=== PATIENT | male | born 1970 | race Caucasian/White ===

== ENCOUNTER 2019-08-17 00:08 | Observation (INO) | payer SELFPAY ==
[2019-08-17] VITALS (16 sets, daily range): BP systolic 139–187; BP diastolic 85–122; PULSE 79–105; RESP 14–20; TEMP 36.7–37.3; O2SAT 94–97; BMI 31.5
--- NOTE | 2019-08-17 00:15 | ECG_ITS ---
Measurements Intervals [place] Rate: 87 P: 45 UT: 157 QRS: 16 QRSD: 94 T: 37 QT: 328 QTc: 396 SINUS RHYTHM No previous ECG available for comparison Electronically Signed On 08-17-2019 20:22:41 MISSION ANALYST by Brett Lora M.D. [email or web address]
--- NOTE | 2019-08-17 00:15 | XRR_ITS ---
PROCEDURE INFORMATION: Exam: XR Chest, 1 View Exam date and time: 08/17/2019 12:58 AM Age: 48 years old Clinical indication: Patient HX: Cough for a few weeks TECHNIQUE: Imaging protocol: XR of the chest Views: 1 view. COMPARISON: No relevant prior studies available. FINDINGS: Lungs: Emphysematous change and interstitial prominence. No acute infiltrate. Pleural space: No pleural effusion. Heart/Mediastinum: Normal configuration of the heart. Bones/joints: Unremarkable. XR/XR chest 1V portable [id number] IMPRESSION: Emphysematous change and interstitial prominence.
--- NOTE | 2019-08-17 00:24 | ED_ITS ---
Entered by Kathrine Matute, acting as scribe for Jennifer Arora Gerald Aug 17, 2019 00:08 HPI - Chest Pain General: Chief Complaint: Chest Pain Stated Complaint: ACHE BOTH ARMS, CHEST PAIN Time Seen by Provider: 08/17/19 00:15 History of Present Illness: HPI narrative: 48 y/o male presents to the ED with complaint of chest/epigastric pain. Pt states he has pain that radiates down both arms. He has some relief after belching. MD complaint: chest pain Onset (ago): hour(s) Pain location: epigastric Pain radiation: right arm and left arm Quality: dull Associated symptoms: Deny diaphoresis, dyspnea, fever(s), nausea, palpitations, syncope or vomiting Review of Systems Const: Denies: fever, chills, body aches, fatigue, malaise or diaphoresis Eyes: Denies: change in vision or blurry vision ENMT: Denies: throat pain, painful swallowing, hoarseness, ear pain, ear discharge, Change in hearing or nasal discharge Card: Reports: other; Denies: palpitations or syncope Resp: Denies: shortness of breath, productive cough, non-productive cough, wheezing, coughing up blood or chest congestion GI: Denies: nausea, vomiting, vomiting blood, coffee grounds in vomit, diarrhea, constipation, cramping, blood in stool or black tarry stool : Denies: flank pain, difficulty urinating, painful urination, urinary frequency, urinary urgency, decreased urine ouput, urinary incontinence or blood in urine Musc: Denies: neck pain, back pain, extremity pain, extremity swelling, joint pain, joint swelling, joint warmth or joint stiffness Skin/Breast: Denies: rash, skin tenderness or yellow skin Neuro: Denies: headache, numbness in extremities, weakness in extremities, changes in sensation, lack of coordination, difficulty walking, dizziness, vertigo or confusion Endo: Denies: excessive thirst, tired all the time, cold intolerance, excessive sweating, flushing or hot flashes Ammon/Lymph: Denies: easy bruising, easy bleeding, petechiae or enlarged lymph nodes All/Imm: Denies: hives, throat swelling, tongue swelling, facial swelling or acute wheezing PFSH ED PFSH: Statuses (acute, chronic, etc) shown below reflect problem list status as previously entered and may not be historically accurate Social History Smoking and tobacco status: never smoked Physical Exam Const: COMMON NORMALS: no apparent distress, oriented x3, no limitations, healthy appearing and well nourished EXAM LIMITATIONS: no altered mental status GENERAL APPEARANCE: cooperative, well kempt and well developed ORIENTATION/CONSCIOUSNESS: Yes awake HENMT: COMMON NORMALS: normocephalic, head/scalp atraumatic, hearing grossly normal bilaterally, external ears normal, EAC's normal, external nose normal and moist oral mucous membranes HEAD & SCALP: normal to inspection, normocephalic and atraumatic FACE & SINUS: normal facial exam and face symmetric NOSE: external nose normal and nares normal EXTERNAL EAR: Yes external ears normal EXTERNAL AUDITORY CANAL: EAC's normal MOUTH: oral and palatal mucosa normal and tongue normal Eye: COMMON NORMALS: PERRL, EOMs intact bilaterally, conjunctivae normal and no scleral icterus GENERAL EYE: normal appearance of both eyes and normal light reflex CONJUNCTIVA: Yes conjunctivae normal SCLERA: sclerae normal CORNEA: Yes corneas normal PUPIL: Yes PERRL DIRECT OPHTHALMOSCOPY: Yes normal light reflex Neck/C-Spine: COMMON NORMALS: full ROM, no lymphadenopathy, supple, no meningeal signs and no JVD GENERAL: Yes normal visual inspection and Yes trachea midline CERVICAL SPINE: Yes cervical ROM normal Resp: COMMON NORMALS: normal respiratory effort, no retractions, no use of accessory muscles and clear to auscultation bilaterally EFFORT & INSPECTION: Yes able to speak in complete sentences AUSCULTATION: clear to auscultation bilaterally Cardio: COMMON NORMALS: no JVD, regular rate, regular rhythm, S1 normal heart sound, S2 normal heart sound, no gallops, no clicks, no murmurs and no rub JUGULAR VENOUS DISTENTION: no JVD RATE: regular rate RHYTHM: regular rhythm HEART SOUNDS: S1 normal and S2 normal : COMMON NORMALS: Yes no CVA tenderness BLADDER/KIDNEY EXAM: Yes no CVA tenderness Back/Pelvis: COMMON NORMALS: no CVA tenderness, thoracic and lumbar spine normal to inspection, no thoracic nor lumbar tenderness and thoraco-lumbar ROM normal Extremity: COMMON NORMALS: normal to inspection, full ROM, normal capillary refill, no joint enlargement, no clubbing, cyanosis or edema and no calf tenderness Neuro: COMMON NORMALS: oriented x3, CN's II-XII intact bilaterally, moves all extremities, no focal motor deficits and no sensory deficits noted MENINGEAL SIGNS: Yes no meningeal signs Psych: COMMON NORMALS: mental status grossly normal, thought process normal, cooperative, affect normal, speech normal and activity/motor behavior normal APPEARANCE: Yes well kempt SPEECH: Yes normal speech THOUGHT PROCESS: normal thought process Skin: COMMON NORMALS: no rashes or lesions noted, skin turgor normal, no jaundice, no petechiae and no mottling GENERAL SKIN EXAM: no rashes or lesions noted and turgor normal Course Vital Signs: Vital signs: Vital Signs Temperature 98.4 F 08/17/19 00:19 Pulse Rate 83 08/17/19 03:41 Respiratory Rate 16 08/17/19 03:41 Blood Pressure 148/85 08/17/19 03:41 Pulse Oximetry 96 08/17/19 03:41 MDM - Chest Pain MDM Narrative: Medical decision making narrative: The patient has a heart score of 4. The concern of acute coronary syndrome is present. It is possible this is a epigastric type lesion. I will go ahead and admit the patient for cardiac rule out. The case was endorsed to Dr. Olivier and he will come and evaluate the patient for admission. Lab Data: Attestation: I reviewed the patient's lab results. Labs: Lab Results 08/17/19 08/17/19 08/17/19 Range/Units 00:26 00:26 00:26 WBC 7.6 (4.0-10.0) 10^3/ uL RBC 5.37 H (4.1-5.3) 10^6/u L Hgb 15.1 (11.7-16.6) g/dL Hct 45.8 (42.0-52.0) % MCV 85.3 (80-94) fL MCH 28.1 (28.0-34.0) pg MCHC 33.0 (30.0-36.0) g/dL RDW 12.6 (12.1-15.1) % Plt Count 278 (130-400) 10^3/c mm MPV 10.2 (7.4-10.4) fL Neut % (Auto) 59.0 % Lymph % (Auto) 28.9 % Jay % (Auto) 10.2 % Eos % (Auto) 1.2 % Baso % (Auto) 0.4 % Neut # (Auto) 4.5 (1.8-7.7) 10^3/u L Lymph # (Auto) 2.2 (0.8-4.8) 10^3/u L Jay # (Auto) 0.8 (0.2-0.9) 10^3/u L Eos # (Auto) 0.1 (0.0-0.8) 10^3/u L Baso # (Auto) 0.0 (0.0-0.1) 10^3/u L Nucleated RBC % (a uto) 0 % Nucleated RBCs # 0.0 /100WBC PT 12.40 (10.5-13.3) SECO NDS INR 0.90 (0.8-1.2) APTT 27.5 (23.9-36.7) SECO NDS Sodium 137 (136-145) mmol/L Potassium 4.2 (3.5-5.1) mmol/L Chloride 99 (98-107) mmol/L Carbon Dioxide 27 (22-29) mmol/L Anion Gap 15.2 (5-19) BUN 18 (6-20) mg/dL Creatinine 1.1 (0.7-1.2) mg/dL GFR Calculation 71.4 L (90-130) mL/min Glucose 111 H (74-109) mg/dL Calcium 10.7 H (8.6-10.0) mg/Dl Magnesium 2.3 (1.7-2.3) mg/dL Total Bilirubin 0.4 (0.15-1.2) mg/dL AST 22 (0-40) U/L ALT 39 (0-41) U/L Alkaline Phosphata se 47 (40-130) IU/L Troponin T Baselin e (0-15) ng/mL Troponin T 120 Min capitan grande band (0-15) ng/mL Delta Troponin T (0-10) ABS# NT-Pro-B Natriuret Pep 35 (0-125) pg/mL Total Protein 7.5 (6.6-8.7) g/dL Albumin 4.5 (3.5-5.2) g/dL Globulin 3.0 (1.3-4.6) g/dL Lipase 36 (13-60) U/L Urine Color (Yellow) Urine Appearance (CLEAR) Urine pH (5-7) Ur Specific Gravit y (1.005-1.030) Urine Protein (Negative) Urine Glucose (UA) (Normal) Urine Ketones (Negative) Urine Occult Blood (Negative) Urine Nitrate (Negative) Urine Bilirubin (NEGATIVE) Urine Urobilinogen (Negative) mg/dL Ur Leukocyte Paulette ase (Negative) Urine RBC (0-2) /hpf Urine WBC (0-5) /hpf Ur Squamous Epith Cells (0-5) Urine Bacteria (NONE) 08/17/19 08/17/19 08/17/19 Range/Units 00:26 01:30 02:06 WBC (4.0-10.0) 10^3/ uL RBC (4.1-5.3) 10^6/u L Hgb (11.7-16.6) g/dL Hct (42.0-52.0) % MCV (80-94) fL MCH (28.0-34.0) pg MCHC (30.0-36.0) g/dL RDW (12.1-15.1) % Plt Count (130-400) 10^3/c mm MPV (7.4-10.4) fL Neut % (Auto) % Lymph % (Auto) % Jay % (Auto) % Eos % (Auto) % Baso % (Auto) % Neut # (Auto) (1.8-7.7) 10^3/u L Lymph # (Auto) (0.8-4.8) 10^3/u L Jay # (Auto) (0.2-0.9) 10^3/u L Eos # (Auto) (0.0-0.8) 10^3/u L Baso # (Auto) (0.0-0.1) 10^3/u L Nucleated RBC % (a uto) % Nucleated RBCs # /100WBC PT (10.5-13.3) SECO NDS INR (0.8-1.2) APTT (23.9-36.7) SECO NDS Sodium (136-145) mmol/L Potassium (3.5-5.1) mmol/L Chloride (98-107) mmol/L Carbon Dioxide (22-29) mmol/L Anion Gap (5-19) BUN (6-20) mg/dL Creatinine (0.7-1.2) mg/dL GFR Calculation (90-130) mL/min Glucose (74-109) mg/dL Calcium (8.6-10.0) mg/Dl Magnesium (1.7-2.3) mg/dL Total Bilirubin (0.15-1.2) mg/dL AST (0-40) U/L ALT (0-41) U/L Alkaline Phosphata se (40-130) IU/L Troponin T Baselin e 8 (0-15) ng/mL Troponin T 120 Min [place] band 6.84 (0-15) ng/mL Delta Troponin T -1.16 L (0-10) ABS# NT-Pro-B Natriuret Pep (0-125) pg/mL Total Protein (6.6-8.7) g/dL Albumin (3.5-5.2) g/dL Globulin (1.3-4.6) g/dL Lipase (13-60) U/L Urine Color Yellow (Yellow) Urine Appearance Clear (CLEAR) Urine pH 5 (5-7) Ur Specific Gravit y 1.010 (1.005-1.030) Urine Protein Neg (Negative) Urine Glucose (UA) Norm (Normal) Urine Ketones Negative (Negative) Urine Occult Blood Trace H (Negative) Urine Nitrate Negative (Negative) Urine Bilirubin Neg (NEGATIVE) Urine Urobilinogen Norm (Negative) mg/dL Ur Leukocyte Paulette ase Negative (Negative) Urine RBC 0-4 H (0-2) /hpf Urine WBC None (0-5) /hpf Ur Squamous Epith Cells None (0-5) Urine Bacteria None (NONE) Imaging Data^: CXR: My impression: No acute cardiopulmonary findings. EKG Data^: EKG 1: Attestation: I personally reviewed and interpreted this EKG as follows: Interpretation: EKG read and reported at 0024 -normal sinus rhythm at 87 beats a minute, normal NM intervals, normal axis, no acute ST or T wave changes. EKG 2: Interpretation: EKG at 0227 -normal sinus rhythm at 77 beats a minute, no acute ST-T wave changes, no acute findings. Unchanged from previous. Discharge Plan Discharge Admit Provider: Janell Olivier Coding Level of Care Code ED Waiter/Waitress Buffet for g Fwd Exam Problem Focused The documentation recorded by the scribeGiovani Ashley, accurately reflects the service I personally performed and the decisions made by me, Jennifer Arora Aug 17, 2019 00:08
[2019-08-17 00:39] LABS: Basophils % 0.4 %; Eosinophils # 0.1 10^3/uL (0.0-0.8); Eosinophils % 1.2 %; Hematocrit 45.8 % (42.0-52.0); Hemoglobin 15.1 g/dL (11.7-16.6); Lymphocytes # 2.2 10^3/uL (0.8-4.8); Lymphocytes % 28.9 %; Mean Corpuscular Hemoglobin 28.1 pg (28.0-34.0); Mean Corpuscular Volume 85.3 fL (80-94); Mean Platelet Volume 10.2 fL (7.4-10.4); Monocytes # 0.8 10^3/uL (0.2-0.9); Monocytes % 10.2 %; Neutrophils # 4.5 10^3/uL (1.8-7.7); Nucleated Red Blood Cells % 0 %; Platelet Count 278 10^3/cmm (130-400); Red Blood Count 5.37 10^6/uL (4.1-5.3); Red Cell Distribution Width 12.6 % (12.1-15.1); White Blood Count 7.6 10^3/uL (4.0-10.0)
[2019-08-17] MEDS: nitroglycerin 0.4 mg sublingual Tablet SUBLINGUAL ×3 (00:41→01:01)
[2019-08-17] MEDS: aspirin 81 mg Chew Tablet 324 MG PO (00:41)
[2019-08-17] MEDS: sodium chloride 0.9% 1,000 ML 100 ML IV ×2 (00:41→05:27)
[2019-08-17 00:42] LABS: Partial Thromboplastin Time 27.5 SECONDS (23.9-36.7)
[2019-08-17 00:54] LABS: Troponin(5th) Baseline 8 ng/mL (0-15)
[2019-08-17 01:04] LABS: Alanine Aminotransferase 39 U/L (0-41); Albumin Level 4.5 g/dL (3.5-5.2); Alkaline Phosphatase 47 IU/L (40-130); Anion Gap 15.2 (5-19); Aspartate Amino Transferase 22 U/L (0-40); Blood Urea Nitrogen 18 mg/dL (6-20); Calcium 10.7 mg/Dl (8.6-10.0); Carbon Dioxide 27 mmol/L (22-29); Chloride 99 mmol/L (98-107); Glomerular Filtration Rate 71.4 mL/min (90-130); Glucose 111 mg/dL (74-109); Lipase 36 U/L (13-60); Magnesium 2.3 mg/dL (1.7-2.3); NT Pro B Type Natriuretic Pept 35 pg/mL (0-125); Potassium 4.2 mmol/L (3.5-5.1); Sodium 137 mmol/L (136-145); Total Bilirubin 0.4 mg/dL (0.15-1.2); Total Protein 7.5 g/dL (6.6-8.7)
--- NOTE | 2019-08-17 01:11 | US_ITS ---
WS: [id number] Complete ABDOMINAL ULTRASOUND HISTORY: Abdominal Pain COMPARISON: None available. Liver: 15.6 cm in length. Normal size liver with increased echogenicity and attenuation from hepatic steatosis. The entire liver is not well visualized due to attenuation. No mass or bile duct dilatatio n. Gallbladder: Normally distended with no gallstones, wall thickening or pericholecystic fluid. Gallbladder wall thickness: 0.2 mm. Pancreas: Tail is poorly visualized. Head and neck are normal. CBD: 3.5 mm. Right kidney: 10.7 cm x 6.1 cm x 5.4 cm. No mass, cortical thickening or hydronephrosis. Left kidney: 12.4 cm x 4.9 cm x 6.6 cm. No mass, cortical thickening or hydronephrosis. Spleen: Normal size and echogenicity. Abdominal aorta and IVC are within normal limits. No ascites. US/US abdomen complete* [id number] IMPRESSION: 1. Normal complete abdomen ultrasound. Moderate hepatic steatosis. No mass or dilatation of the bile ducts. 2. Normal gallbladder. 3. Normal kidneys.
--- NOTE | 2019-08-17 02:02 | PC.NURSE ---
LAB IN ROOM
[2019-08-17 02:11] LABS: Bilirubin Urine Neg (NEGATIVE); Blood Urine Trace (Negative); Glucose Urine UA Norm (Normal); Ketones Urine Negative (Negative); Leukocyte Esterase Urine Negative (Negative); Nitrate Urine Negative (Negative); Protein Urine Neg (Negative); RBC Urine 0-4 /hpf (0-2); Urine Appearance Clear (CLEAR); Urine Color Yellow (Yellow); Urobilinogen Urine Norm (Negative); pH Urine 5 (5-7)
[2019-08-17] MEDS: nitroglycerin 1 gm/inch oint Pkt 1 INCH TOPICAL (02:27)
[2019-08-17 02:29] LABS: Troponin 5 2HR 6.84 ng/mL (0-15)
[2019-08-17 02:30] LABS: Troponin 5 2HR Delta -1.16 ABS# (0-10)
--- NOTE | 2019-08-17 03:30 | P.HP_ITS ---
Providers/Chief Complaint Admitting Physician: Janell Olivier MD Chief Complaint: CHEST PAIN History of Present Illness EDMUND CORDERO is a 48 year old male who carries diagnosis of hypertension, family history of Brugada syndrome came in with chief complaint of epigastric pain. Patient is stating that symptoms started 1 week ago which are getting worse after eating, he would get epigastric discomfort, epigastric discomfort would get relieved to some extent with burping, no relationship with food intake or hunger. Today his arm started getting numb and pain was radiating towards his both arms at this point he decided to come to ER for further evaluation. He did not experience any chest pain, nausea, vomiting, dysuria, diarrhea, constipation, flulike symptoms. His epigastric pain is non- positional, no relationship with exertion or rest. He is describing his pain as dull 3-4/10 intensity without any aggravating or relieving factors. Diagnostics in ER showed normal hemodynamics, normal EKG without significant r ise in troponin he was admitted because of heart score of 4 and family history of Brugada syndrome Review of Systems Const: Denies: fever or chills Eyes: Denies: change in vision ENMT: Denies: throat pain Card: Denies: chest pain, palpitations or syncope Resp: Denies: shortness of breath GI: Reports: abdominal pain, bloating and excessive passing of gas; Denies: nausea, vomiting or change in bowel habits : Denies: flank pain Musc: Denies: neck pain Skin/Breast: Denies: rash Neuro: Denies: headache Psych: Denies: anxiety Endo: Denies: excessive urination Ammon/Lymph: Denies: easy bruising All/Imm: Denies: hives Medications/Allergies Allergies Allergy/AdvReac Type Severity Reaction Status Date / Time No Known Allergies Allergy Verified 08/17/19 04:51 PFSH Acute PFSH: Statuses (acute, chronic, etc) shown below reflect problem list status as previously entered and may not be historically accurate Medical History (Updated 08/17/19 @ 05:05 by Janell Olivier MD) Hypertension (Acute) Surgical History (Updated 08/17/19 @ 05:06 by Janell Olivier MD) No pertinent past surgical history (Acute) Family History (Updated 08/17/19 @ 05:06 by Janell Olivier MD) Mother Hypertension Sister Hypertension Father Brugada syndrome Grandfather Brugada syndrome Social History (Updated 08/17/19 @ 05:06 by Janell Olivier MD) Smoking and tobacco status: never smoked Alcohol intake: never Substance/Drug Use: never Household members: spouse Marital status: Vitals/I&O/Wt Last Vital Signs Temp 98.4 F 08/17/19 00:19 Pulse 82 08/17/19 02:55 Resp 16 08/17/19 02:55 BP 144/93 08/17/19 02:55 Pulse Ox 95 08/17/19 02:55 Weight last 48 hrs Weight 99.79 kg Physical Exam Narrative: EXAM NARRATIVE: Patient lying comfortably in his bed, well-built male S1-S2 no active murmur no JVD or heart failure Abdomen soft nontender nondistended, bowel sounds present, mild epigastric tenderness positive on deep palpation no signs of peritonitis Neurologically nonfocal exam Lungs are clear to auscultation Skin without ischemia signs of gangrene or ulcer Extremities does not show any signs of edema\ Appropriate mood and affect EOMI PERRLA Data : 08/17/19 00:26 08/17/19 00:26 A&P Assessment and plan (1) Epigastric pain: Status: Acute Code(s): R10.13 - Epigastric pain Additional A&P Information Epigastric pain with atypical chest discomfort radiating towards arms Heart score 4, negative troponin, no signs of ischemia on EKG, Will admit for his Lexiscan stress test N.p.o. Stop beta-alisa GI cocktail and Protonix Family history of Brugada syndrome: EKG is not showing any typical signs of Brugada His father at age 35 Chronic hypertension: Patient takes metoprolol 25 mg on and off for hypertension He needs better blood pressure control on arrival systolic blood pressure was 180 Currently on nitro paste, would recommend to remove in 3 hours We will check lipid panel, TSH, A1c I would add lisinopril and hold beta-alisa Considering his systolic blood pressure of 180 he will need at least 2 antihypertensives on discharge DVT prophylaxis: Lovenox Attestations Medical Necessity Statement*: Anticipating discharge in less than 48 hours, rule out cardiac origin of epigastric pain Time Spent in Patient Care: (>than 50% of time spent in counselling and/or direct pt care on unit) . 50 Coding Level of Care Code Acute [place] Assessor for Chg Fwd Diagnoses Epigastric pain R10.13
--- NOTE | 2019-08-17 04:32 | NMCV_ITS ---
NM sumit perf SPECT r/s* [id number] EDMUND CORDERO Age: 48 Gender: M : 1970 Exam Date: 08/17/2019 04:32 Ordering Phys: Janell Olivier MD Technologist: MARCO Valderrama Exam Location: [facility] [address] Indications: Chest Pain STRESS TEST Please see separate stress [facility] for full findings IMAGE PROTOCOL Rest/Stress 1 Lexiscan Day Radiopharmaceutical Dose (mCi) Administration Site Administered by Rest: Tc-99m 10.9 IV MARCO Valderrama Sestamibi Stress:Tc-99m 31.5 IV MARCO Valderrama Sestamibi Rest: 17-Aug-2019 60 Discovery 630 Stress: 17-Aug-2019 60 Discovery 630 0.4mg Lexiscan. Images obtained in supine and prone position. SPECT RESULTS Technical Quality: Good Raw Data Analysis: Normal, Diaphragmatic attenuation Image Corrections: No attenuation or motion correction applied Summed Stress Score: 5 Summed Rest Score: 2 Summed Difference Score: 3 PERFUSION FINDINGS Small to moderate areas of slightly decreased tracer uptake were noted in the mid and apical anterior, mid inferolateral and apical lateral regions. Subtle reversibility was noted in these regions with the supine imaging. However the prone imaging, there was no significant reversible defects. FUNCTIONAL RESULTS (calculated via Gated SPECT) Stress Image LV EF (%): 62 Stress EDV (mL):119 TID: 0.85 Stress ESV (mL):45 FUNCTIONAL FINDINGS: Segmental wall motion analysis revealed no gross wall motion normalities IMPRESSIONS 1. Myocardial perfusion imaging revealing small to moderate areas of slightly decreased tracer uptake in the anterior, inferolateral and apical lateral regions with some reversibility, suggestive of ischemia in the perfusion of the left and descending artery/circumflex artery. However because of the inconsistency with the prone imaging, the liberty of this finding is questionable. Clinical correlation is recommended. 2. Normal LV ejection fraction 62%. 3. LV wall motion analysis revealing no gross wall motion normalities. 4. LV volume, upper limit of normal. No similar previous studies are available for comparison Dr Brett Lora MD [facility] (Electronically Signed) Final Date: 17 August 2019 13:24 S
[2019-08-17] MEDS: enoxaparin 40 mg/0.4 mL Syringe SUBCUT (05:27)
--- NOTE | 2019-08-17 05:33 | PC.NURSE ---
Nitro Paste removed from patients upper left chest at this time.
[2019-08-17 06:11] LABS: Estmated Average Glucose 134; Hemoglobin A1C 6.3 % (4.0-6.0)
[2019-08-17 06:12] LABS: Chol HDL Ratio 4.86 mg/dL (1.0-5.00); Cholesterol 175 mg/dL (0-200); HDL Cholesterol 36 mg/dL (60-100); LDL Cholesterol Calculated 112 mg/dL (50-129); LDL HDL Ratio 3.11 RATIO (0.00-3.22); Thyroid Stimulating Hormone 5.46 uIU/mL (0.27-4.20); Triglycerides 136 mg/dL (0-150)
--- NOTE | 2019-08-17 06:15 | ECG_ITS ---
Measurements Intervals [place] Rate: 77 P: 44 [place]: 162 QRS: 26 QRSD: 98 T: 42 QT: 361 QTc: 409 SINUS RHYTHM No previous ECG available for comparison Electronically Signed On 08-17-2019 20:33:06 VICE PRESIDENT DIVERSITY by Brett Lora M.D. [email or web address]
--- NOTE | 2019-08-17 07:05 | ECG_ITS ---
NAME OF STUDY: LEXISCAN SESTAMIBI STRESS TEST INDICATION: Atypical Chest Pain; Chest Pain, LEXISCAN STRESS TEST ORDERING PHYSICIAN: Hospitalist CLINICAL INFORMATION: Chest pain INTERPRETATION: 1. The patient was brought to the laboratory where Lexiscan was infused over 20 seconds. The resting blood pressure was 163/107. Maximum blood pressure was 187/109. The resting heart rate was 83 beats per minute. The maximum heart rate is 126 beats per minute. 2. The baseline electrocardiogram reveals sinus rhythm and is a normal tracing 3. With Lexiscan infusion, there were no ST segment changes to suggest ischemia. 4. The patient experienced no symptoms or arrhythmias during the examination. CONCLUSION: 1. Unremarkable Lexiscan infusion. 2. Nuclear imaging to follow. 3. Hypertension Electronically Signed On 08-17-2019 17:20:58 BOTTOMER OPERATOR by Ismael Morejon M.D. [email or web address]
[2019-08-17 07:07] LABS: Troponin 5 6HR 7.17 ng/L (0-15)
[2019-08-17 07:13] LABS: Troponin 5 6HR Delta -0.83 ng/L (0-12)
--- NOTE | 2019-08-17 09:01 | PC.NURSE ---
0800- patient off of floor at this time for scheduled stress test
[2019-08-17] MEDS: regadenoson 0.4 Mg/5 ml Syringe IVP (09:35)
[2019-08-17] MEDS: pantoprazole DR 40 mg Tablet 20 MG PO (10:22)
[2019-08-17] MEDS: lisinopril 10 mg Tablet PO (10:22)
--- NOTE | 2019-08-17 11:30 | PC.NURSE ---
Blood Pressure was taken after patient came back from a stress test
[2019-08-17] MEDS: amlodipine 10 mg Tablet PO (11:45)
--- NOTE | 2019-08-17 11:47 | PC.NURSE ---
Pt resting in bed with family at bedside. Dr Patel in with patient discussing plan of care
--- NOTE | 2019-08-17 16:33 | PM.CONSULT ---
Providers/Reason For Consult Consulting Physican/Specialty*: Cardiovascular medicine Reason for Consult*: Epigastric pain with mildly abnormal stress testing Attending Physician: Chase Patel MD History of Present Illness History of Present Illness EDMUND CORDERO is a 48 year old male who was admitted earlier with some epigastric discomfort. He is noticed this for the last week or 2. It is better with belching. He has it mostly at rest. He describes it as a discomfort that he develops especially in the evening after he comes home from work. This occurs after his evening meal. 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 Since he has been here his EKG is normal. His troponins are negative. He had a stress test earlier today which revealed a small to moderate area of very slight decreased tracer uptake suggestive of ischemia in the LAD or circumflex region. There is inconsistency with the prone imaging and so the finding is questionable. There is normal LV function and no wall motion abnormalities. He has no history of heart disease. His blood pressure was high when he came in. He has a history of hypertension was put on a beta-alisa sometime ago but has not taken it for about 9 months. He does have a fairly strong history of coronary disease and his father may have of an DC or some kind of cardiac anomaly when he was 38 years old. There is Brugada syndrome in the family as well. Meds/Allergies Home Medications and Allergies Home Medications Medication Instructions Recorded Confirmed Type No Known Home Medications 08/17/19 08/17/19 History Allergies Allergy/AdvReac Type Severity Reaction Status Date / Time No Known Allergies Allergy Verified 08/17/19 04:51 Current Medications Current Medications Generic Name Dose Route Start Last Admin Trade Name Freq PRN Reason Stop Dose Admin Amlodipine Besylate 10 mg 08/17/19 11:30 08/17/19 11:45 Norvasc PO 10 mg DAILY EUGENE Administration Enoxaparin Sodium 40 mg 08/17/19 05:00 08/17/19 05:27 Lovenox SUBCUT 40 mg Q24H EUGENE Administration Lisinopril 10 mg 08/17/19 09:00 08/17/19 10:22 Prinivil PO 10 mg DAILY EUGENE Administration Nitroglycerin 0.4 mg 08/17/19 00:15 08/17/19 01:01 Nitrostat SUBLINGUAL 3 tab Q5M PRN Administration CHEST PAIN Pantoprazole Sodium 20 mg 08/17/19 09:00 08/17/19 10:22 Protonix PO 20 mg DAILY EUGENE Administration PFSH Acute PFSH: Statuses (acute, chronic, etc) shown below reflect problem list status as previously entered and may not be historically accurate Medical History (Updated 08/17/19 @ 16:38 by Ismael Morejon MD) Glucose intolerance (Acute) Hypertension (Acute) Surgical History No pertinent past surgical history (Acute) Family History Mother Hypertension Sister Hypertension Father Brugada syndrome Grandfather Brugada syndrome Social History Smoking and tobacco status: never smoked Alcohol intake: never Substance/Drug Use: never Household members: spouse Marital status: Vitals/I&O/Wt Last Vital Signs Temp 99.1 F 08/17/19 15:15 Pulse 88 08/17/19 15:15 Resp 20 H 08/17/19 15:15 BP 139/88 08/17/19 15:15 Pulse Ox 95 08/17/19 15:15 08/17/19 08/17/19 08/17/19 06:59 14:59 22:59 Intake Total 0 / 0 360 / 360 Balance 0 / 0 360 / 360 Weight last 48 hrs Weight 220 lb Physical Exam Narrative: EXAM NARRATIVE: GENERAL: In general he looks and feels well HEENT: Exam within normal limits. NECK: Supple without jugular vein distention. The carotid upstroke is normal without bruits. BACK: Exam normal. LUNGS: Clear. HEART: Regular rate and rhythm. ABDOMEN: Benign without organomegaly or tenderness. EXTREMITIES: No edema. NEUROLOGIC: Exam normal. SKIN: Unremarkable. A&P Assessment and plan (1) Hypertension: Status: Acute Qualifiers: Hypertension type: essential hypertension Qualified Code(s): I10 - Essential (primary) hypertension Code(s): I10 - Essential (primary) hypertension (2) Epigastric pain: Status: Acute Code(s): R10.13 - Epigastric pain (3) Glucose intolerance: Status: Acute Code(s): E74.39 - Other disorders of intestinal carbohydrate absorption Additional A&P Information I think given the rather atypical nature of the pain, the completely normal EKG, the negative troponin and the questionable small abnormality on stress testing that he is at relatively low risk. He and I spent quite a long time talking about sodium intake, dietary measures to include protein, carbohydrate and sugars. I would suggest treating him with metoprolol 25 mg twice daily and following him up as an outpatient. We discussed limiting his dessert intake especially the sweets and complex carbohydrates. This would be to decrease his blood sugar and for some weight loss and management of his overall health. We also talked about sodium restriction with respect to his blood pressure. I think he can go home this evening. Consult Attestations Medical Necessity Statement: Not applicable Time Spent in Patient Care: Greater than 35 minutes Coding Level of Care Code New Pt Acute Occupational Therapy Director for Chg Fwd Patient Type New History Expanded Problem Focused Exam Expanded Problem Focused Medical Decision Making Moderate Complexity Diagnoses Hypertension I10 Hypertension type: essential hypertension Epigastric pain R10.13 Glucose intolerance E74.39
--- NOTE | 2019-08-17 20:59 | PM.DCS ---
Discharge Providers Date of Admission: 08/17/19 03:04 Date of Discharge: 08/17/19 Attending Provider at Admission: Janell Olivier MD Attending Provider at Discharge: Chase Patel MD Diagnoses at Discharge Discharge Diagnosis (1) Hypertension: Status: Acute Qualifiers: Hypertension type: essential hypertension Qualified Code(s): I10 - Essential (primary) hypertension (2) Epigastric pain: Status: Acute (3) Glucose intolerance: Status: Acute Reason for Visit Reason for Visit: Reason For Visit: CHEST PAIN Hospital Course Discharge Summary: Patient was admitted for chest pain, EKG normal sinus rhythm no significant ST-T wave changes, no clinically significant troponin elevations, patient underwent a cardiac stress test which showed 1. Myocardial perfusion imaging revealing small to moderate areas of slightly decreased tracer uptake in the anterior, inferolateral and apical lateral regions with some reversibility, suggestive of ischemia in the perfusion of the left and descending artery/circumflex artery. However because of the inconsistency with the prone imaging, the liberty of this finding is questionable. Clinical correlation is recommended. 2. Normal LV ejection fraction 62%. 3. LV wall motion analysis revealing no gross wall motion normalities Given patient's noncompliance with hypertensive medications, significant family history of CAD, cardiology was consulted. Cardiology recommended conservative management, with better titration of blood pressure. Patient was discharged on aspirin, statin, metoprolol, lisinopril. Patient was advised to check blood pressure twice daily, with a close follow-up with primary care physician as outpatient. Patient was also advised that if he were to have recurrent chest pain come back to the emergency room. Patient was also found to be prediabetic, hemoglobin A1c 6.3, I discussed the possibility of starting him on metformin, he declined this, elected for conservative management including weight loss and diet control. Patient also had complaints of acid reflux, was discharged on Pepcid and simethicone as outpatient. Physical Exam Const: COMMON NORMALS: no apparent distress and oriented x3 GENERAL APPEARANCE: cooperative and comfortable HENMT: COMMON NORMALS: normocephalic HEAD & SCALP: normocephalic Eye: COMMON NORMALS: PERRL PUPIL: Yes PERRL Neck/C-Spine: COMMON NORMALS: full ROM, no lymphadenopathy and no JVD Lymph: LYMPHATIC: no lymphadenopathy noted Resp: COMMON NORMALS: normal respiratory effort, no retractions, no use of accessory muscles and clear to auscultation bilaterally AUSCULTATION: clear to auscultation bilaterally Cardio: COMMON NORMALS: no JVD, regular rate, regular rhythm, S1 normal heart sound, S2 normal heart sound, no gallops, no clicks and no murmurs RATE: regular rate RHYTHM: regular rhythm HEART SOUNDS: S1 normal and S2 normal GI: COMMON NORMALS: normal to inspection, nondistended, normoactive bowel sounds, soft to palpation, non-tender and no hepatosplenomegaly PALPATION: Yes soft and Yes no hepatosplenomegaly Extremity: COMMON NORMALS: normal to inspection, full ROM and no pedal edema Neuro: COMMON NORMALS: oriented x3, CN's II-XII intact bilaterally, moves all extremities and no focal motor deficits Psych: COMMON NORMALS: mental status grossly normal, thought process normal and cooperative THOUGHT PROCESS: normal thought process Discharge Data Data Completed and Pending: Completed Studies During Hospitalization Category Date Time Status Cardiac Stress Te st MIBI [Sestamibi Stress Test Reque st Exams 08/17/19 07:05 Completed ] Routine XR chest 1V shane ble [id number] Stat Exams 08/17/19 00:15 Completed NM sumit perf SPECT r/s* [id number] Routin e Nuc Med 08/17/19 04:32 Completed US abdomen comple te* [id number] Urgent Ultrasound 08/17/19 01:11 Completed Labs from last 24 hours 08/17/19 08/17/19 08/17/19 06:34 02:06 01:30 WBC RBC Hgb Hct MCV MCH MCHC RDW Plt Count MPV Neut % (Auto) Lymph % (Auto) [place] % (Auto) Eos % (Auto) Baso % (Auto) Neut # (Auto) Lymph # (Auto) [place] # (Auto) Eos # (Auto) Baso # (Auto) Nucleated RBC % (a uto) Nucleated RBCs # PT INR APTT Sodium Potassium Chloride Carbon Dioxide Anion Gap BUN Creatinine GFR Calculation Glucose Estimat Average Gl ucose Hemoglobin A1c Calcium Magnesium Total Bilirubin AST ALT Alkaline Phosphata se Troponin I 6 Hour 7.17 Troponin I Hi Sens Del -0.83 L Troponin T Baselin e Troponin T 120 Min grayling 6.84 Delta Troponin T -1.16 L NT-Pro-B Natriuret Pep Total Protein Albumin Globulin Triglycerides Cholesterol LDL Cholesterol, C alc HDL Cholesterol LDL/HDL Ratio Cholesterol/HDL Ra darrell Lipase TSH Urine Color Yellow Urine Appearance Clear Urine pH 5 Ur Specific Gravit y 1.010 Urine Protein Neg Urine Glucose (UA) Norm Urine Ketones Negative Urine Occult Blood Trace H Urine Nitrate Negative Urine Bilirubin Neg Urine Urobilinogen Norm Ur Leukocyte Paulette ase Negative Urine RBC 0-4 H Urine WBC None Ur Squamous Epith Cells None Urine Bacteria None 08/17/19 08/17/19 08/17/19 00:26 00:26 00:26 WBC RBC Hgb Hct MCV MCH MCHC RDW Plt Count MPV Neut % (Auto) Lymph % (Auto) [place] % (Auto) Eos % (Auto) Baso % (Auto) Neut # (Auto) Lymph # (Auto) [place] # (Auto) Eos # (Auto) Baso # (Auto) Nucleated RBC % (a uto) Nucleated RBCs # PT INR APTT Sodium Potassium Chloride Carbon Dioxide Anion Gap BUN Creatinine GFR Calculation Glucose Estimat Average Gl ucose 134 Hemoglobin A1c 6.3 H Calcium Magnesium Total Bilirubin AST ALT Alkaline Phosphata se Troponin I 6 Hour Troponin I Hi Sens Del Troponin T Baselin e 8 Troponin T 120 Min grayling Delta Troponin T NT-Pro-B Natriuret Pep Total Protein Albumin Globulin Triglycerides 136 Cholesterol 175 LDL Cholesterol, C alc 112 HDL Cholesterol 36 L LDL/HDL Ratio 3.11 Cholesterol/HDL Ra darrell 4.86 Lipase TSH 5.46 H Urine Color Urine Appearance Urine pH Ur Specific Gravit y Urine Protein Urine Glucose (UA) Urine Ketones Urine Occult Blood Urine Nitrate Urine Bilirubin Urine Urobilinogen Ur Leukocyte Paulette ase Urine RBC Urine WBC Ur Squamous Epith Cells Urine Bacteria 08/17/19 08/17/19 08/17/19 00:26 00:26 00:26 WBC 7.6 RBC 5.37 H Hgb 15.1 Hct 45.8 MCV 85.3 MCH 28.1 MCHC 33.0 RDW 12.6 Plt Count 278 MPV 10.2 Neut % (Auto) 59.0 Lymph % (Auto) 28.9 [place] % (Auto) 10.2 Eos % (Auto) 1.2 Baso % (Auto) 0.4 Neut # (Auto) 4.5 Lymph # (Auto) 2.2 [place] # (Auto) 0.8 Eos # (Auto) 0.1 Baso # (Auto) 0.0 Nucleated RBC % (a uto) 0 Nucleated RBCs # 0.0 PT 12.40 INR 0.90 APTT 27.5 Sodium 137 Potassium 4.2 Chloride 99 Carbon Dioxide 27 Anion Gap 15.2 BUN 18 Creatinine 1.1 GFR Calculation 71.4 L Glucose 111 H Estimat Average Gl ucose Hemoglobin A1c Calcium 10.7 H Magnesium 2.3 Total Bilirubin 0.4 AST 22 ALT 39 Alkaline Phosphata se 47 Troponin I 6 Hour Troponin I Hi Sens Del Troponin T Baselin e Troponin T 120 Min grayling Delta Troponin T NT-Pro-B Natriuret Pep 35 Total Protein 7.5 Albumin 4.5 Globulin 3.0 Triglycerides Cholesterol LDL Cholesterol, C alc HDL Cholesterol LDL/HDL Ratio Cholesterol/HDL Ra darrell Lipase 36 TSH Urine Color Urine Appearance Urine pH Ur Specific Gravit y Urine Protein Urine Glucose (UA) Urine Ketones Urine Occult Blood Urine Nitrate Urine Bilirubin Urine Urobilinogen Ur Leukocyte Paulette ase Urine RBC Urine WBC Ur Squamous Epith Cells Urine Bacteria Vitals: Last Vital Signs Temp 99.1 F 08/17/19 18:10 Pulse 88 08/17/19 18:10 Resp 20 H 08/17/19 18:10 BP 139/88 08/17/19 18:10 Pulse Ox 95 08/17/19 18:10 Discharge Plan Discharge Patient Disposition: Home, Self-Care Condition: Stable Prescriptions: New Nitrostat 0.4 mg Tablet, Sublingual 0.4 mg sublingual Q5M PRN (Reason: Chest Pain) 3 Days Qty: 3 RF: 0 metoprolol tartrate 25 mg tablet 25 mg PO BID 30 Days Qty: 60 RF: 0 lisinopril 20 mg tablet 20 mg PO DAILY 30 Days Qty: 30 RF: 0 simethicone 80 mg tablet,chewable 80 mg PO DAILY PRN (Reason: abdominal distention) 30 Days Qty: 30 RF: 0 Pepcid 20 mg tablet 20 mg PO DAILY 30 Days Qty: 30 RF: 0 Adult Aspirin Regimen 81 mg tablet,delayed release (DR/EC) 81 mg PO DAILY 30 Days Qty: 30 RF: 0 atorvastatin 40 mg tablet 40 mg PO DAILY 30 Days Qty: 30 RF: 0 Discharge Orders: Discharge Order (Routine); Ordered 08/17/19 Ordered By: Chase Patel Referrals: [facility] [Other] (Please make follow up appointment with primary care provider within 7-10 days. ) Discharge Diet: Cardiac Discharge Activity: Resume usual activity Patient Instructions: Diabetes and Diet, Nitroglycerin (By mouth), Lisinopril (By mouth), Famotidine (By mouth), Aspirin (By mouth), Simethicone (By mouth), Atorvastatin (By mouth), Chest Pain (DC), Diabetes Mellitus Type 2 in Adults (DC), Chronic Hypertension (DC) Activity Restrictions/Additional Instructions: -If you have repeat chest pain come back to the emergency room -Please take blood pressure medication as prescribed -If you feel lightheaded, dizzy, check blood pressure, call primary care -Check blood pressure once daily, record and blood pressure log, bring to primary care physician's office -Please try to eat healthy, lose weight as you are prediabetic -Follow-up with primary care provider for checking hemoglobin A1c in 3 to 6 months -For acid reflux, use Pepcid and simethicone as prescribed, follow-up with primary care for consideration of an EGD Discharge Date/Time: 08/17/19 18:11 Discharge Attestations Time Spent in Discharge Care*: less than 30 min Quality Metrics Clinical Quality Measures During this hospital stay, did patient experience: None Coding Level of Care Code Acute Rectangular Tank Cooper for Chg Fwd Diagnoses Hypertension I10 Hypertension type: essential hypertension Epigastric pain R10.13 Glucose intolerance E74.39
== END 2019-08-17 18:11 | disposition home or self-care (01) ==
LOC: ER 03:20 → MEDSURG 03:21
PROVIDERS: Admitting Provider Internal Medicine; Emergency Provider Emergency Medicine; Visit Provider Family Medicine
DX: R10.13 Epigastric pain (principal); I10 Essential (primary) hypertension; Z82.49 Family history of ischemic heart disease and other diseases of the circulatory system; Z79.82 Long term (current) use of aspirin; E74.39 Other disorders of intestinal carbohydrate absorption
CPT/HCPCS: 12345; 36415; 71045; 76700; 78452; 80053; 80061; 81001; 83036; 83690; 83735; 83880; 84443; 84484; 85025; 85610; 85730; 93005; 93017; 96360; 96361; 96372; 99283; 99285; A9500; G0378; J1650; J2785; J7030

== ENCOUNTER 2020-11-18 22:15 | Emergency (ER) | payer SELFPAY ==
[2020-11-18 22:25] VITALS: BP 146/100; PULSE 91; RESP 16; TEMP 36.7; O2SAT 97; BMI 33.7
--- NOTE | 2020-11-18 23:00 | XR_ITS ---
WS: [id number] PORTABLE CHEST HISTORY: cp COMPARISON: 08/17/2020 Lungs are clear and well expanded. No pleural effusion or pneumothorax. Cardiac size: Normal. Mediastinum/Aorta: Normal mediastinum. No osseous abnormality seen. XR/XR chest 1V portable [id number] IMPRESSION: Unremarkable portable chest.
[2020-11-18 23:31] VITALS: BP 154/95; PULSE 79; RESP 18; O2SAT 95
[2020-11-18 23:45] VITALS: PULSE 80
[2020-11-18 23:48] VITALS: RESP 18; O2SAT 95
[2020-11-18] MEDS: morphine 4 mg/mL SDV 1 mL IVP (23:48)
[2020-11-18] MEDS: ondansetron 2 mg/ML SDV 2 mL 4 MG IVP (23:48)
[2020-11-19] LABS: Basophils % 0.4 %; Eosinophils # 0.1 10^3/uL (0.0-0.8); Eosinophils % 0.9 %; Hematocrit 48.3 % (42.0-52.0); Hemoglobin 15.7 g/dL (11.7-16.6); Lymphocytes # 2.7 10^3/uL (0.8-4.8); Lymphocytes % 25.8 %; Mean Corpuscular HGB Conc 32.5 g/dL (30.0-36.0); Mean Corpuscular Hemoglobin 28.6 pg (28.0-34.0); Mean Platelet Volume 9.8 fL (7.4-10.4); Monocytes # 1.2 10^3/uL (0.2-0.9); Monocytes % 11.1 %; Neutrophils # 6.43 10^3/uL (1.8-7.7); Neutrophils % 61.5 %; Nucleated Red Blood Cells % 0 %; Platelet Count 291 10^3/cmm (130-400); Red Blood Count 5.49 10^6/uL (4.1-5.3); Red Cell Distribution Width 12.8 % (12.1-15.1); White Blood Count 10.4 10^3/uL (4.0-10.0)
[2020-11-19] MEDS: lidocaine 2% viscous 15 ML, aluminum-mag hydrox-simethicon 30 ML, sucralfate oral liq 1 GM PO (00:04)
[2020-11-19 00:22] LABS: Troponin(5th) Baseline 8 ng/L (0-15)
[2020-11-19 00:31] LABS: Alanine Aminotransferase 27 U/L (0-41); Albumin Level 4.8 g/dL (3.5-5.2); Alkaline Phosphatase 38 IU/L (40-130); Anion Gap 18.1 (5-19); Aspartate Amino Transferase 14 U/L (0-40); Blood Urea Nitrogen 22 mg/dL (6-20); Calcium 9.6 mg/dL (8.5-10.5); Carbon Dioxide 24 mmol/L (22-29); Chloride 99 mmol/L (98-107); Creatine Phosphokinase 83 U/L (39-308); Globulin 2.7 g/dL (1.3-4.6); Glomerular Filtration Rate 79.1 mL/min (90-130); Glucose 99 mg/dL (65-115); NT Pro B Type Natriuretic Pept 23 pg/mL (0-125); Osmolality Calculated 287 mOsm/kg (285-295); Potassium 4.1 mmol/L (3.5-5.1); Sodium 137 mmol/L (136-145); Total Bilirubin 0.6 mg/dL (0.15-1.2); Total Protein 7.5 g/dL (6.6-8.7)
[2020-11-19 00:40] VITALS: BP 136/84; PULSE 78; RESP 13; O2SAT 93
[2020-11-19 00:45] VITALS: BP 136/84; PULSE 77; RESP 14; O2SAT 95
[2020-11-19 01:00] VITALS: BP 126/82; PULSE 70; RESP 16; O2SAT 94
--- NOTE | 2020-11-19 01:00 | ECG_ITS ---
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
--- NOTE | 2020-11-19 01:27 | ED_ITS ---
HPI - Chest Pain General: Chief Complaint: Chest Pain Stated Complaint: pressure in chest Time Seen by Provider: 11/18/20 22:52 History of Present Illness: HPI narrative: 50-year-old male with a history of hypertension and glucose intolerance. He presents with epigastric/chest discomfort this been going on and off for the past 5 days or so. He notes that today, it it radiated more up into his chest and down both arms. This seems to worry him. He is not overly short of breath. He was a bit nauseated. He has had no significant cough or fever. MD complaint: chest discomfort Onset (ago): day(s) Timing of current episode: episodic Prior episodes: Yes Onset: during rest Pain location: substernal and epigastric Pain radiation: left shoulder and right shoulder Quality: aching and heaviness Relieving factors: nothing Exacerbating factors: nothing Associated symptoms: Reports nausea; Deny dyspnea, fever(s), leg edema, palpitations or vomiting Review of Systems Const: Denies: fever(s) Eyes: Denies: change in vision ENMT: Denies: odynophagia or sinus pain Card: Reports: chest pain; Denies: palpitations, irregular heart rhythm or edema Resp: Denies: dyspnea GI: Reports: nausea; Denies: vomiting : Denies: difficulty urinating or dysuria Musc: Denies: back pain, joint redness or joint warmth Skin/Breast: Denies: rash or erythema Neuro: Denies: headache(s) or dizziness Psych: Denies: anxiety PFSH ED PFSH: Medical History (Updated 11/19/20 @ 02:44 by Elio Agee DO) Glucose intolerance Hypertension Surgical History No pertinent past surgical history Family History Mother Hypertension Sister Hypertension Father Brugada syndrome Grandfather Brugada syndrome Social History Smoking and tobacco status: never smoked Alcohol intake: never Household members: spouse Marital status: Physical Exam Const: GENERAL APPEARANCE: well developed ORIENTATION/CONSCIOUSNESS: Yes oriented to person, Yes oriented to place and Yes oriented to time HENMT: COMMON NORMALS: normocephalic, external ears normal and Normal external nose present HEAD & SCALP: normocephalic FACE & SINUS: normal facial exam NOSE: Normal external nose present and No nasal discharge present EXTERNAL EAR: Yes external ears normal THROAT: posterior oropharynx normal; no peritonsillar mass Eye: COMMON NORMALS: Equal, round and reactive pupils present, EOMs intact bilaterally and conjunctivae normal EYELID: eyelids normal CONJUNCTIVA: Yes conjunctivae normal PUPIL: Yes Equal, round and reactive pupils present Neck/C-Spine: GENERAL: No tracheal deviation Chest: COMMONS NORMALS: normal inspection of the chest CHEST: No tenderness Resp: COMMON NORMALS: clear to auscultation bilaterally EFFORT & INSPECTION: No tachypneic, No respiratory distress, No retractions, No uses accessory muscles and No tracheal deviation AUSCULTATION: clear to auscultation bilaterally, no rhonchi, no wheezes and lung sounds not diminished Cardio: COMMON NORMALS: regular rate and regular rhythm RATE: regular rate RHYTHM: regular rhythm HEART SOUNDS: no murmurs PERIPHERAL PULSES: radial pulses present GI: INSPECTION: No abdominal distension AUSCULTATION: No Hyperactive bowel sounds present and No Hypoactive bowel sounds present PALPATION: No Guarding due to palpation present (GI) and No Rigid due to palpation PERCUSSION: no dullness to percussion and no tympanic to percussion Neuro: SENSORIUM/ORIENTATION: Yes oriented to person, Yes oriented to place and Yes oriented to time Psych: COMMON NORMALS: mental status grossly normal Skin: COMMON NORMALS: no rashes or lesions noted GENERAL SKIN EXAM: no rashes or lesions noted Course Vital Signs: Vital signs: Vital Signs Temperature 98.1 F 11/18/20 22:25 Pulse Rate 72 11/19/20 02:00 Respiratory Rate 12 11/19/20 02:00 Blood Pressure 130/85 11/19/20 02:00 Pulse Oximetry 95 11/19/20 02:00 MDM - Chest Pain MDM Narrative: Medical decision making narrative: Pain improved after morphine, and GI cocktail. EKGs show normal sinus rhythm with normal axis, rate of 75. There are no acute ST changes. Intervals are normal. Troponin was normal and did not elevated 2 hours. White blood cell count is 10. Hemoglobin 15. Other laboratory is benign. Chest x-ray is negative. He will be allowed home. Outpatient stress test orders have been written, as well as case management referral to schedule. Lab Data: Labs: Lab Results 11/18/20 11/18/20 11/18/20 Range/Units 23:30 23:30 23:30 WBC 10.4 H (4.0-10.0) 10^3/ uL RBC 5.49 H (4.1-5.3) 10^6/u L Hgb 15.7 (11.7-16.6) g/dL Hct 48.3 (42.0-52.0) % MCV 88.0 (80-94) fL MCH 28.6 (28.0-34.0) pg MCHC 32.5 (30.0-36.0) g/dL RDW 12.8 (12.1-15.1) % Plt Count 291 (130-400) 10^3/c mm MPV 9.8 (7.4-10.4) fL Neut % (Auto) 61.5 % Lymph % (Auto) 25.8 % [place] % (Auto) 11.1 % Eos % (Auto) 0.9 % Baso % (Auto) 0.4 % Neut # (Auto) 6.43 (1.8-7.7) 10^3/u L Lymph # (Auto) 2.7 (0.8-4.8) 10^3/u L [place] # (Auto) 1.2 H (0.2-0.9) 10^3/u L Eos # (Auto) 0.1 (0.0-0.8) 10^3/u L Baso # (Auto) 0.0 (0.0-0.1) 10^3/u L Nucleated RBC % (a uto) 0 % Nucleated RBCs # 0.0 /100WBC Sodium 137 (136-145) mmol/L Potassium 4.1 (3.5-5.1) mmol/L Chloride 99 (98-107) mmol/L Carbon Dioxide 24 (22-29) mmol/L Anion Gap 18.1 (5-19) BUN 22 H (6-20) mg/dL Creatinine 1.0 (0.7-1.2) mg/dL GFR Calculation 79.1 L (90-130) mL/min Glucose 99 (65-115) mg/dL Calculated Osmolal ity 287 (285-295) mOsm/k g Calcium 9.6 (8.5-10.5) mg/dL Total Bilirubin 0.6 (0.15-1.2) mg/dL AST 14 (0-40) U/L ALT 27 (0-41) U/L Alkaline Phosphata se 38 L (40-130) IU/L Creatine Kinase 83 (39-308) U/L Troponin T Baselin e 8 (0-15) ng/L Troponin T 120 Min richie (0-15) ng/L Delta Troponin T (0-10) ABS# NT-Pro-B Natriuret Pep 23 (0-125) pg/mL Total Protein 7.5 (6.6-8.7) g/dL Albumin 4.8 (3.5-5.2) g/dL Globulin 2.7 (1.3-4.6) g/dL 11/19/20 Range/Units 01:35 WBC (4.0-10.0) 10^3/ uL RBC (4.1-5.3) 10^6/u L Hgb (11.7-16.6) g/dL Hct (42.0-52.0) % MCV (80-94) fL MCH (28.0-34.0) pg MCHC (30.0-36.0) g/dL RDW (12.1-15.1) % Plt Count (130-400) 10^3/c mm MPV (7.4-10.4) fL Neut % (Auto) % Lymph % (Auto) % [place] % (Auto) % Eos % (Auto) % Baso % (Auto) % Neut # (Auto) (1.8-7.7) 10^3/u L Lymph # (Auto) (0.8-4.8) 10^3/u L [place] # (Auto) (0.2-0.9) 10^3/u L Eos # (Auto) (0.0-0.8) 10^3/u L Baso # (Auto) (0.0-0.1) 10^3/u L Nucleated RBC % (a uto) % Nucleated RBCs # /100WBC Sodium (136-145) mmol/L Potassium (3.5-5.1) mmol/L Chloride (98-107) mmol/L Carbon Dioxide (22-29) mmol/L Anion Gap (5-19) BUN (6-20) mg/dL Creatinine (0.7-1.2) mg/dL GFR Calculation (90-130) mL/min Glucose (65-115) mg/dL Calculated Osmolal ity (285-295) mOsm/k g Calcium (8.5-10.5) mg/dL Total Bilirubin (0.15-1.2) mg/dL AST (0-40) U/L ALT (0-41) U/L Alkaline Phosphata se (40-130) IU/L Creatine Kinase (39-308) U/L Troponin T Baselin e (0-15) ng/L Troponin T 120 Min richie 7.71 (0-15) ng/L Delta Troponin T -0.29 L (0-10) ABS# NT-Pro-B Natriuret Pep (0-125) pg/mL Total Protein (6.6-8.7) g/dL Albumin (3.5-5.2) g/dL Globulin (1.3-4.6) g/dL Discharge Plan Discharge Patient Disposition: Home Clinical Impression: Chest pain Qualifiers: Chest pain type: unspecified Qualified Code(s): R07.9 - Chest pain, unspecified Condition: Stable Discharge Orders: Discharge ED (Routine); Ordered 11/19/20 Ordered By: Elio Agee Discharge Diet: Advance as tolerated Discharge Activity: Increase activity as tolerated Patient Instructions: Chest Pain (ED) Activity Restrictions/Additional Instructions: Return for return of or worsening chest discomfort, shortness of breath, fever greater than 100, any other concerning symptoms. Continue your antiacid medication. A referral for stress testing has been placed with case management. They will contact you at the beginning of the week to schedule. Coding Level of Care Code ED Branch Account Executive for Linda Fwd Exam Comprehensive
[2020-11-19 01:30] VITALS: BP 124/80; PULSE 68; RESP 11; O2SAT 96
[2020-11-19 02:00] VITALS: BP 130/85; PULSE 72; RESP 12; O2SAT 95
[2020-11-19 02:27] LABS: Troponin 5 2HR 7.71 ng/L (0-15); Troponin 5 2HR Delta -0.29 ABS# (0-10)
[2020-11-19 05:26] VITALS: BP 142/95; PULSE 72; RESP 21; O2SAT 96
--- NOTE | 2020-11-19 15:16 | DCPLANNER ---
[employer] sports [employer] manager had message to schedule an outpatient stress test for patient. indoor sports centre manager called patient to confirm that patient still wanted the stress test and also to confirm who patient sees for primary care. Patient stated that he discussed having the stress test with the physician, and it was decided that patient will not have the stress test ordered at this time. Patient is to follow up with his primary care physician, and talk it over with his physician. Patient had a stress test in July of 2019. Patient stated that he would follow up with his primary care physician in [facility]
== END 2020-11-19 03:30 | disposition home or self-care (01) ==
PROVIDERS: Emergency Provider Emergency Medicine
DX: R07.9 Chest pain, unspecified (principal); I10 Essential (primary) hypertension
CPT/HCPCS: 36415; 71045; 80053; 82550; 83880; 84484; 85025; 93005; 96374; 96375; 99284; J2270; J2405